=== PATIENT | male | born 2000 | race Caucasian/White ===

== ENCOUNTER 2018-05-11 14:17 | Emergency (ER) | payer OTHER ==
[2018-05-11 16:01] LABS: Absolute Monocytes 0.5 K/uL (0.1-1.3); Absolute Neutrophil 9.2 K/uL (1.8-8.0); Basophils % 0.2 % (0-1.3); Eosinophils % 0.2 % (0-4.4); Hematocrit 46.2 % (39.6-49.0); MCH 30.1 pg (27.0-35.0); MCV 86.8 fL (80-100); MPV 8.7 fL (7.6-11.3); Monocytes % 4.6 % (3.3-12.3); RBC Red Blood Cell Count 5.33 M/uL (4.33-5.43)
[2018-05-11 16:02] LABS: Protime INR 1.09
[2018-05-11 16:25] LABS: Barbiturates NEGATIVE (NEGATIVE); Benzodiazepines NEGATIVE (NEGATIVE); Cocaine NEGATIVE (NEGATIVE); METHAMPHETAM NEGATIVE (NEGATIVE); Methadone NEGATIVE (NEGATIVE); Opiates NEGATIVE (NEGATIVE); Phencyclidine NEGATIVE (NEGATIVE); THC Cannibis NEGATIVE (NEGATIVE)
[2018-05-11 16:26] LABS: Blood Morphology Comment NOT SEEN (NOT SEEN); Platelet Estimate ADEQ; Urine White Blood Cell Casts OK
[2018-05-11 16:28] LABS: ALT/SGPT 29 U/L (12-78); AST/SGOT 17 U/L (15-37); Albumin 4.4 g/dL (3.4-5.0); Alkaline Phosphatase 87 U/L (45-117); BUN Blood Urea Nitrogen 8 mg/dL (7-18); Bicarbonate 26 mmol/L (21-32); Bilirubin Direct 0.1 mg/dL (0-0.2); Bilirubin Total 0.4 mg/dL (0.2-1.0); Glucose Level 87 mg/dL (74-106); Potassium 3.8 mmol/L (3.5-5.1); Sodium Level 141 mmol/L (136-145)
[2018-05-11 16:48] LABS: Urine Blood NEGATIVE (NEG); Urine Glucose NEGATIVE (NEG); Urine Protein NEGATIVE (NEG)
--- NOTE | 2018-05-11 17:53 | EDPHYS ---
Physician Documentation [facility] Name: Nicolás Banks Age: 17 yrs Sex: Male : 2000 Arrival Date: 05/11/2018 Time: 14:20 Bed 13 Private MD: ED Physician Jona Marshall HPI: 05/11 15:26 This 17 yrs old Male presents to ER via Ambulatory with complaints of Anxiety.jm 15:26 The patient presents to the emergency department with anxiety, psychosis, has jmm experienced auditory hallucinations, has experienced visual hallucinations. Onset: The symptoms/episode began/occurred gradually, 1 year(s) ago. This is a 17 year old male with no chronic medical conditions that presents to the ED with complaints of anxiety, hallucinations worsening. Patient states the auditory hallucinations tell him disparaging comments. Patient denies suicidal or homicidal ideations. . Historical: - Allergies: 14:30 No Known Allergies; aj1 - Home Meds: 14:30 None [Active]; aj1 - PMHx: 14:30 None; aj1 - PSHx: 14:30 None; aj1 - Immunization history:: Flu vaccine is not up to date. - Social history:: Smoking status: Patient/guardian denies using tobacco, Patient/guardian denies using alcohol, street drugs. - Ebola Screening: : Patient denies travel to an Ebola-affected area in the 21 days before illness onset. ROS: 15:26 Constitutional: Negative for fever, chills, and weight loss, Eyes: Negative for injury, jmm pain, redness, and discharge, Neck: Negative for injury, pain, and swelling, Respiratory: Negative for shortness of breath, cough, wheezing, and pleuritic chest pain, Abdomen/GI: Negative for abdominal pain, nausea, vomiting, diarrhea, and constipation. 15:26 MS/Extremity: Negative for injury and deformity, Skin: Negative for injury, rash, and discoloration, Neuro: Negative for headache, weakness, numbness, tingling, and seizure. 15:26 Cardiovascular: Positive for chest pain. 15:26 Psych: Positive for anxiety, auditory hallucinations, visual hallucinations, Negative for homicidal ideation, suicidal ideation. 15:26 All other systems are negative. Exam: 15:26 Head/Face: atraumatic. Chest/axilla: Normal chest wall appearance and motion. jmm Cardiovascular: Regular rate and rhythm. No edema appreciated Respiratory: Normal respirations, no respiratory distress appreciated Abdomen/GI: Non distended, soft 15:26 Constitutional: The patient appears in no acute distress, alert, awake. 15:26 Neuro: Orientation: is normal, Mentation: is normal, Memory: is normal. 15:26 Psych: Behavior/mood is pleasant, cooperative. Vital Signs: 14:30 BP 134 / 82; Pulse 85; Resp 18; Temp 98.5; Pulse Ox 97% on R/A; Weight 131.54 kg (R); aj1 Height 5 ft. 9 in. (175.26 cm) (R); Pain 0/10; 15:30 BP 122 / 66; Pulse 71; Resp 18; Pulse Ox 97% on R/A; dh3 16:30 BP 106 / 62; Pulse 68; Resp 13; Pulse Ox 96% on R/A; rb1 17:30 BP 133 / 68; Pulse 71; Resp 15; Pulse Ox 98% on R/A; rb1 18:14 BP 125 / 93; Pulse 67; Resp 16; Pulse Ox 98% on R/A; rb1 14:30 Body Mass Index 42.83 (131.54 kg, 175.26 cm) aj1 MDM: 15:03 Patient medically screened. [facility] 17:49 Data reviewed: vital signs, nurses notes. ED course: I discussed the patient with [facility] Psychiatric Response whom stated the patient was not at risk to harm himself or others. Patient will be given information on psychiatric follow up. Family given return precautions. Understood and agree with the plan of care. . 05/11 15:03 Order name: Acetaminophen; Complete Time: 16:31 [facility] 05/11 15:03 Order name: Basic Metabolic Panel; Complete Time: 16:31 [facility] 05/11 15:03 Order name: CBC with Diff; Complete Time: 16:31 [facility] 05/11 15:03 Order name: ETOH Level; Complete Time: 16:21 [facility] 05/11 15:03 Order name: Hepatic Function; Complete Time: 16:31 [facility] 05/11 15:03 Order name: PT-INR; Complete Time: 16:12 [facility] 05/11 15:03 Order name: Ptt, Activated; Complete Time: 16:12 [facility] 05/11 15:03 Order name: Salicylate; Complete Time: 16:21 [facility] 05/11 15:03 Order name: Urine Drug Screen; Complete Time: 16:27 [facility] 05/11 15:03 Order name: EKG; Complete Time: 15:04 [facility] 05/11 15:03 Order name: EKG - Nurse/Tech; Complete Time: 15:55 [facility] 05/11 15:03 Order name: IV Saline Lock; Complete Time: 15:40 [facility] 05/11 16:00 Order name: Urine Dipstick--Ancillary (enter results); Complete Time: 16:51 05/11 16:03 Order name: CBC Smear Scan; Complete Time: 16:31 [facility] 05/11 15:03 Order name: Labs collected and sent; Complete Time: 15:40 [facility] 05/11 15:03 Order name: Urine Dipstick-Ancillary (obtain specimen); Complete Time: 15:55 [facility] Administered Medications: No medications were administered Disposition: 18:43 Co-signature as Attending Physician, Jona Marshall MD. rn Disposition: 05/11/18 17:52 Discharged to Home. Impression: Auditory hallucinations. - Condition is Stable. - Discharge Instructions: Schizophrenia, Generalized Anxiety Disorder. - Medication Reconciliation Form, Thank You Letter, Antibiotic Education, Prescription Opioid Use form. - Follow up: Dread Melton MD; When: As needed; Reason: Recheck today's complaints, Continuance of care, Re-evaluation by your physician. Follow up: Colton Wayne MD; When: As needed; Reason: Recheck today's complaints, Continuance of care, Re-evaluation by your physician. - Notes: Please follow up with [facility]. You can contact them at [phone]. Please return to the ED if you develop worsening symptoms such as thoughts of suicide or intent to harm others. Signatures: Dispatcher [employer] EDMS Tonya Robles RN RN aj1 Jh Georges PA PA [facility] Jona Marshall MD MD rn Barber, Rebecca, RN RN rb1 Corrections: (The following items were deleted from the chart) 18:37 17:52 05/11/2018 17:52 Discharged to Home. Impression: Auditory hallucinations. rb1 Condition is Stable. Forms are Medication Reconciliation Form, Thank You Letter, Antibiotic Education, Prescription Opioid Use. Follow up: rDead Melton; When: As needed; Reason: Recheck today's complaints, Continuance of care, Re-evaluation by your physician. Follow up: Colton Wayne; When: As needed; Reason: Recheck today's complaints, Continuance of care, Re-evaluation by your physician. dunia
--- NOTE | 2018-05-11 17:53 | ER ---
Nurse's Notes [facility] Name: Nicolás Banks Age: 17 yrs Sex: Male : 2000 Arrival Date: 05/11/2018 Time: 14:20 Bed 13 Private MD: Diagnosis: Auditory hallucinations Presentation: 05/11 14:23 Presenting complaint: Patient states: He's been having feelings of renée vu, then aj1 feeling paniced and he gets pressure in his chest that goes up to his neck. He is also having a hallucination of a voice for the past years. Denies suicidal or homicidal ideation. Transition of care: patient was not received from another setting of care. Onset of symptoms was 2016. Risk Assessment: Do you want to hurt yourself or someone else? Patient reports no desire to harm self or others. Initial Sepsis Screen: Does the patient meet any 2 criteria? No. Patient's initial sepsis screen is negative. Does the patient have a suspected source of infection? No. Patient's initial sepsis screen is negative. Care prior to arrival: None. 14:23 Method Of Arrival: Ambulatory [facility] 14:23 Acuity: KAIA 3 aj1 Triage Assessment: 14:30 General: Appears in no apparent distress. comfortable, Behavior is calm, cooperative, aj1 appropriate for age. Pain: Denies pain. Neuro: Level of Consciousness is awake, alert, obeys commands. Cardiovascular: Patient's skin is warm and dry. Respiratory: Airway is patent Respiratory effort is even, unlabored, Respiratory pattern is regular, symmetrical. Historical: - Allergies: 14:30 No Known Allergies; aj1 - Home Meds: 14:30 None [Active]; aj1 - PMHx: 14:30 None; aj1 - PSHx: 14:30 None; aj1 - Immunization history:: Flu vaccine is not up to date. - Social history:: Smoking status: Patient/guardian denies using tobacco, Patient/guardian denies using alcohol, street drugs. - Ebola Screening: : Patient denies travel to an Ebola-affected area in the 21 days before illness onset. Screenin:35 Abuse screen: Denies threats or abuse. Nutritional screening: No deficits noted. rb1 Tuberculosis screening: No symptoms or risk factors identified. Fall Risk None identified. Assessment: 14:35 General: Appears obese, Behavior is anxious, Denies fever. General: Pt. denies wanting rb1 to hurt himself or others but said that he hears voices and experiences Renée Vu. Family at bedside.. Pain: Complains of pain in mid-sternal area Pain radiates to neck Pain currently is 6 out of 10 on a pain scale. Pain began 2-3 days ago. Neuro: Level of Consciousness is awake, alert, obeys commands, Oriented to person, place, time, situation. Neuro: Reports dizziness. Cardiovascular: Capillary refill < 3 seconds is brisk in bilateral fingers. Respiratory: Airway is patent Respiratory effort is even, unlabored, Respiratory pattern is regular, symmetrical. Respiratory: Reports shortness of breath. GI: No signs and/or symptoms were reported involving the gastrointestinal system. : No signs and/or symptoms were reported regarding the genitourinary system. Derm: Skin is pink, warm \\T\\ dry. 15:25 Reassessment: Patient appears in no apparent distress at this time. Patient and/or rb1 family updated on plan of care and expected duration. Pain level reassessed. Patient is alert, oriented x 3, equal unlabored respirations, skin warm/dry/pink. [facility] is at pt. bedside. Family is present. 16:22 Reassessment: Patient appears in no apparent distress at this time. No changes from rb1 previously documented assessment. Family at bedside. 17:22 Reassessment: Patient appears in no apparent distress at this time. Patient and/or rb1 family updated on plan of care and expected duration. Pain level reassessed. Patient is alert, oriented x 3, equal unlabored respirations, skin warm/dry/pink. Patient states feeling better. 18:14 Reassessment: Patient appears in no apparent distress at this time. No changes from rb1 previously documented assessment. Vital Signs: 14:30 BP 134 / 82; Pulse 85; Resp 18; Temp 98.5; Pulse Ox 97% on R/A; Weight 131.54 kg (R); aj1 Height 5 ft. 9 in. (175.26 cm) (R); Pain 0/10; 15:30 BP 122 / 66; Pulse 71; Resp 18; Pulse Ox 97% on R/A; dh3 16:30 BP 106 / 62; Pulse 68; Resp 13; Pulse Ox 96% on R/A; rb1 17:30 BP 133 / 68; Pulse 71; Resp 15; Pulse Ox 98% on R/A; rb1 18:14 BP 125 / 93; Pulse 67; Resp 16; Pulse Ox 98% on R/A; rb1 14:30 Body Mass Index 42.83 (131.54 kg, 175.26 cm) aj1 ED Course: 14:20 Patient arrived in ED. sb2 14:29 Triage completed. aj1 14:30 Arm band placed on Patient placed in an exam room. aj1 14:35 Patient has correct armband on for positive identification. Bed in low position. Call rb1 light in reach. Side rails up X 1. Pulse ox on. NIBP on. 14:41 Amelia Nair RN is Primary Nurse. rb1 14:44 Jona Marshall MD is Attending Physician. rn 14:44 Jh Georges PA is PHCP. [facility] 15:40 Initial lab(s) drawn, by me, sent to lab. Inserted saline lock: 20 gauge in right dh3 antecubital area, using aseptic technique. Blood collected. 15:54 EKG done, by ED staff, reviewed by Jh HARRISON. Urine collected: clean catch dh3 specimen, clear. 16:30 called and spoke with Janie at the [facility] to page out a screener to come eb evaluate the patient. 17:00 Rubi from the [facility] called and said " it would be awhile before she eb could get here." when asked for a time from she said an hour and a half. 17:51 Dread Melton MD is Referral Physician. [facility] 17:51 Colton Wayne MD is Referral Physician. [facility] 18:14 No provider procedures requiring assistance completed. IV discontinued, intact, rb1 bleeding controlled, No redness/swelling at site. Pressure dressing applied. Administered Medications: No medications were administered Outcome: 17:52 Discharge ordered by MD. jmm 18:14 Patient left the ED. rb1 18:14 Discharged to home ambulatory, with family. rb1 18:14 Condition: stable 18:14 Discharge instructions given to patient, Instructed on discharge instructions, follow up and referral plans. Demonstrated understanding of instructions, follow-up care, Prescriptions given X none Signatures: Tonya Robles RN RN aj Jh Georges PA PA [facility] Jona Marshall MD MD rn Barber, Rebecca, RN RN rb1 Zoila Joy 3 Miracle Alonso 2 Aleah Hoyos Corrections: (The following items were deleted from the chart) 17:35 14:35 General: Pt. denies wanting to hurt himself or others. Family at bedside.. rb1 rb1 18:38 18:37 Patient left the ED. rb1 rb1
--- NOTE | 2018-05-12 08:53 | EKG ---
Test Date: 2018-05-11 Test Time: 15:47:46 [employer] Professor: MIRIAM MEASUREMENT RESULTS: Intervals: Rate: 71 CA: 186 QRSD: 100 QT: 384 QTc: 417 [place]: P: 25 CA: 186 QRS: 39 T: 26 INTERPRETIVE STATEMENTS: Normal sinus rhythm Normal ECG No previous ECG available for comparison Electronically Signed On 05-12-18 08:52:37 CDT by James Dela Cruz
== END 2018-05-11 18:37 | disposition home or self-care (01) ==
LOC: ER 14:17
DX: R44.0 Auditory hallucinations (principal)
CPT/HCPCS: 36415; 80048; 80076; 80307; 80320; 80329; 81003; 85025; 85610; 85730; 93005; 99284